=== PATIENT | female | born 1965 | race Caucasian/White ===

== ENCOUNTER 2021-10-26 14:30 | Outpatient (RCR) | payer OTHER, SELFPAY ==
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
== END 2021-10-29 11:00 | disposition home or self-care (01) ==
LOC: ANHPT 14:30
DX: S02.609D Fracture of mandible, unspecified, subsequent encounter for fracture with routine healing (principal); S62.601D Fracture of unspecified phalanx of left index finger, subsequent encounter for fracture with routine healing; S22.41XD Multiple fractures of ribs, right side, subsequent encounter for fracture with routine healing
CPT/HCPCS: 92523; 97110; 97112; 97161; 97166; 97530

== ENCOUNTER → 2021-12-13 14:39 | Outpatient (CLI) | payer OTHER, SELFPAY ==
--- NOTE | ~2021-12-13 | MR_ITS ---
EXAMINATION: MR brain/brain stem wo/w con DATE: 12/13/2021 16:02 INDICATION: Multiple sclerosis TECHNIQUE: Magnetic resonance imaging (MRI) of the brain and brainstem was performed without and with 13 mL Multihance intravenous contrast. Sequences included sagittal and axial T1-weighted FLAIR, axia l T1-weighted FSE, axial diffusion-weighted FS EPI, sagittal T2-weighted FLAIR, axial T2*-weighted GR E, axial T2-weighted FLAIR Propeller, and axial T2-weighted Propeller. Postcontrast sequences include d axial, coronal, and sagittal T1-weighted FSE. Apparent diffusion coefficient (ADC) maps were create d. COMPARISON: None. FINDINGS: There are no areas of restricted diffusion to suggest acute infarction. There is a region of encephal omalacia with surrounding T2 hyperintense likely gliosis and decreased signal in susceptibility weigh odin imaging consistent with presence of blood products at the right cerebellar hemisphere. There is o verlying right occipital craniotomy which suggests this is related to prior surgery. There are approx imately 8 total lesions of increased T2-weighted signal intensity in the brain. Of these lesions, sukumar roximately 3 are periventricular, 4 are juxtacortical, and none are infratentorial. None of the lesio ns enhance. In addition there is increased T2 signal along the corpus callosum most prominent at the splenium. No abnormal intracranial mass lesion. The ventricles are symmetric and normal in size. Ther e are no abnormal extra-axial fluid collections. Flow voids are seen in the cerebral arteries on the T2-weighted sequences consistent with their expected patency. Visualized orbits and soft tissues are unremarkable. There are no areas of abnormal enhancement on the post contrast images. IMPRESSION: 1. A few periventricular and subcortical T2 hyperintense white matter lesions along with increased T2 signal along the corpus callosum which would be consistent with provided history of multiple scleros is. No enhancing lesions identified to suggest acute disease. 2. Encephalomalacia at the right cerebral hemisphere underlying a prior right occipital craniotomy. C orrelate with surgical history. Reviewed, dictated and finalized at location A. IMPRESSION: 1. A few periventricular and subcortical T2 hyperintense white matter lesions a long with increased T2 signal along the corpus callosum which would be consiste nt with provided history of multiple sclerosis. No enhancing lesions identified to suggest acute disease. 2. Encephalomalacia at the right cerebral hemisphere underlying a prior right o ccipital craniotomy. Correlate with surgical history.
[2021-12-13 15:25] LABS: Estimated Glomerular Filt Rate > 60
== END ==
PROVIDERS: Visit Provider Psychiatry & Neurology Neurology
DX: G35 Multiple sclerosis (principal); G93.89 Other specified disorders of brain
CPT/HCPCS: 70553; A9577

== ENCOUNTER 2022-05-18 16:15 | Emergency (ER) | payer OTHER, SELFPAY ==
--- NOTE | 2022-05-18 17:21 | ED.FEMALEGU ---
HPI - Female Genitourinary General Chief complaint: Urogenital-Female Stated complaint: uti Time Seen by Provider: 05/18/22 18:15 Source: patient and RN notes reviewed Mode of arrival: ambulatory Limitations: no limitations History of Present Illness HPI Narrative: 57-year-old female presents concern for painful urination, urine frequency for 2 weeks. She reports history of urinary tract infections. She denies any abdominal pain, nausea, vomiting, chills, sweats, fever, back pain. MD elicited complaint: UTI Related Data Home Medications Medication Instructions Recorded Confirmed aspirin 81 mg chewable tablet 81 mg PO DAILY 05/18/22 05/18/22 cholecalciferol (vitamin D3) 25 25 mcg PO DAILY 05/18/22 05/18/22 mcg (1,000 unit) tablet duloxetine 30 mg capsule,delayed 30 mg PO DAILY 05/18/22 05/18/22 release duloxetine 60 mg capsule,delayed 60 mg PO DAILY 05/18/22 05/18/22 release melatonin 3 mg tablet 3 mg PO HS 05/18/22 05/18/22 nortriptyline 25 mg capsule 25 mg PO DAILY 05/18/22 05/18/22 teriflunomide 14 mg tablet 14 mg PO DIRECTED 05/18/22 05/18/22 (Aubagio) Allergies Allergy/AdvReac Type Severity Reaction Status Date / Time cephalexin [From Keflex] Allergy Other Verified 05/18/22 17:37 trazodone Allergy Other Verified 05/18/22 17:37 Review of Systems Review of Systems: CONSTITUTIONAL: Denies malaise, chills, sweats, or fever. CARDIOVASCULAR: Denies chest pain, palpitations, or edema. RESPIRATORY: Denies cough or dyspnea. GASTROINTESTINAL: Denies abdominal pain, nausea, vomiting, diarrhea GENITOURINARY: Reports dysuria, frequency, urgency. Denies suprapubic pressure. Denies flank pain or hematuria. SKIN: Denies rash or itching. MUSCULOSKELETAL: Denies back pain or myalgia. All systems reviewed & are unremarkable except as noted in HPI and below PMFSH Comments At time of signature, agree with nursing past medical, surgical, social and family history. There is no relevant family history pertinent to the presenting complaint Exam Narrative: GENERAL: Well-appearing, well-nourished, and in no acute distress. HEAD: Normocephalic. EYES: PERRLA, conjunctivae clear. NECK: Supple. No lymphadenopathy CHEST: Clear to auscultation. No respiratory distress. HEART: Regular rate and rhythm. ABDOMEN: Soft, nontender upon palpation, nondistended, normal active bowel sounds, no palpable or pulsatile masses, no guarding. No CVA tenderness SKIN: Warm, dry, no rash. NEURO: Alert and oriented x3. PSYCH: Normal mood and affect Course Course Emergency Course: Patient is aware of diagnosis, understands and agrees to treatment plan. Anticipatory guidance given. Patient agrees to follow-up as directed and is aware of reasons to seek care at the emergency department. Portions of this record may have been created with voice recognition software Level of Care: Express Care Visit Vital Signs Vital signs: Reviewed. MDM - Female Genitourinary MDM Narrative Medical decision making narrative: Exam findings and UA show no acute concerns or changes; patient is non-toxic appearing and is in no distress. Patient is appropriate for outpatient treatment and follow-up. Differential Diagnosis Differential diagnosis: Likely urinary tract infection and cystitis Critical Care Time Critical Care Time Critical Care Time: No Discharge Plan Discharge Clinical Impression: Urinary tract infection Patient Disposition: Home, Self-Care Condition: Stable Instructions: Antibiotic Form, Urinary Tract Infection in Women (ED) Additional Instructions: We will send a urine culture to the lab; if the culture identifies an organism that the prescribed antibiotic will not treat, you will receive a phone call from an urgent care staff member and an appropriate antibiotic will be prescribed. -Your symptoms should begin to improve within a day of starting antibiotics. But you should finish all the antibiotic pills you get. Otherwi
[2022-05-18 17:40] VITALS: BP 134/74; PULSE 87; RESP 16; TEMP 36.6; O2SAT 100
== END 2022-05-18 18:26 | disposition home or self-care (01) ==
PROVIDERS: Emergency Provider Nurse Practitioner
DX: N39.0 Urinary tract infection, site not specified (principal); G35 Multiple sclerosis; Z86.73 Personal history of transient ischemic attack (TIA), and cerebral infarction without residual deficits; Z79.82 Long term (current) use of aspirin
CPT/HCPCS: 81003; 87077; 87086; 87088; 99213; G0463

== ENCOUNTER 2023-04-04 08:15 | Outpatient (RCR) | payer BC, SELFPAY ==
--- NOTE | 2023-01-30 11:24 | PTOPEVAL1 ---
Assessment and note entered by Angela Travis, PT Evaluation Information Assessment Status Evaluation Diagnosis sciatic nerve pain RLE Onset 2 months ago Subjective Information Patient referred to PT due to worsening sciatic nerve pain which has become constant. Pain initially was radiating into bilateral lower extremities. On this date patient is reporting lower back R hip, and in pelvic floor/saddle region. Patient currently reporting numbness in bilaterl big toes, R lateral calf tingling. Patient does have history of MS and at baseline is independent with gait without AD, patient is currently using 4ww for mobility. Pain in currently limiting ability to perform chores at home. Patient goal is to decrease pain in back and return to normal mobility Reported Pain Level Pain Score 3: Self Report Assessment PT Clinical Summary Patient presents due to back pain with radiating symptoms into R hip and saddle region, pain limits ability to ambulate and perform chores at home. patient presents with decreased RLE strength, severe pain, tenderness to palpation in back musculature, and decreased gait speed/step quality with use of 4ww. Recommending skilled PT 2x/wk for 4 weeks to improve safety/independence with mobility and decrease pain. Limited tolerance with exercises on this date due to severity of pain nand difficulty achieving supine position. Patient educated to go to ER if incontinence occurs/ numbness or weakness progresses. Plan of Care Interventions Aquatic Therapy,Electrical Stimulation,Gait Training,Hot Pack/Cold Pack,Manual Therapy,Neuro Re-education,Patient/Caregiver Education,Therapeutic Activities,Therapeutic Exercise Other Interventions cupping, taping, iastm PT Services Indicated Yes Treatment Frequency and 2x/wk for 4 weeks Duration These treatments will address the objective and functional deficits as defined above. The patient will be advanced safely and appropriately in order for the patient to progress towards his/her prior level of function. Additional exercises will be introduced and as well as a comprehensive home exercise program upon discharge, if needed, ?to ensure carryover of functional gains achieved in the clinic. This treatment plan has been reviewed and agreement upon by the patient.
--- NOTE | 2023-01-30 11:25 | OPREHPOC ---
Outpatient Therapy Plan of Care This is a Multidisciplinary Plan of Care that may contain components documented by all disciplines (PT, OT, and ST.) PT Problem 1 PT Problem #1 Knowledge Deficit PT Goal 1 Goal 1. Patient will demonstrate independence with home exercise program PT Problem 2 PT Problem #2 Pain PT Goal 1 Goal 1. Patient will report back pain as 1/10 2. Patient will report no radicular symptoms into R hip or saddle region. PT Problem 3 PT Problem #3 Impaired Strength PT Goal 1 Goal 1. Patient will improve RLE hip and ankle strength grossly to 4/5 PT Problem 4 PT Problem #4 Impaired Gait PT Goal 1 Goal 1. Patient will perform 2 minute walk test with distance of 350 ft with least restrictive device. 2. Patient will report return to ambulation at home without use of 4ww. PT Problem 5 PT Problem #5 Impaired Functional Mobil PT Goal 1 Goal 1. Patient will report ability to perform laundry at home with pain 1/10 or less in back
--- NOTE | 2023-02-27 08:55 | PCPTNOTE ---
Mrs. Ocampo cancelled her appointment on this date due to having no transportation. Anjel Oro, MPT
--- NOTE | 2023-03-12 09:01 | PTOPEVAL1 ---
Assessment and note entered by Anjel Oro Evaluation Information Assessment Status Progress Diagnosis sciatic nerve pain RLE Onset 2 months ago Subjective Information Pt. reports that she has improved in regards to pain intensity and frequency. She reports that she is using her cane for most ambulation. She states that she notices she can stand longer without developing pain. She states that she used to have to sit on her walker the entire time she cooked and no longer has to use it. She reports that she still notes pain in the legs, described in the hamstring area. She states that she is able to stand for a duration of 10 minutes currently. She reports that she would like to continue with skilled PT as she has noticed improvement and would like to be able to stand longer and further decrease pain. Reported Pain Level Pain Score 1: Self Report Assessment PT Clinical Summary Mrs. Ocampo has attended a total of 9 treatment sessions. In this time she has demonstrated improvements in functional mobility, strength and pain. She continues to present with deficits in standing endurance, gait and strength despite her progress. At this time we will continue skilled PT in order to transition to more intense stabilization activities and continue to improve endurance with ambulation. Continue focus on remaining goals and discussed a walking regimen for home with the pt. Plan of Care Interventions Electrical Stimulation,Gait Training,Hot Pack/Cold Pack,Manual Therapy,Neuro Re-education, Therapeutic Activities,Therapeutic Exercise Other Interventions cupping, taping, iastm PT Services Indicated Yes Treatment Frequency and 1x/week x 4 visits Duration These treatments will address the objective and functional deficits as defined above. The patient will be advanced safely and appropriately in order for the patient to progress towards his/her prior level of function. Additional exercises will be introduced and as well as a comprehensive home exercise program upon discharge, if needed, ?to ensure carryover of functional gains achieved in the clinic. This treatment plan has been reviewed and agreement upon by the patient.
--- NOTE | 2023-04-09 11:56 | PCPTNOTE ---
pt called and canceled today's reeval appt;
--- NOTE | 2023-06-05 09:53 | PCPTNOTE ---
Mrs. Ocampo attended a total of 12 treatment sessions from 01/30/23 to 04/04/23. She has failed to return to the clinic and has not contacted the clinic. She will be discharged from our care at this time. Thank you for the referral of this patient. Anjel Oro, MPT
== END 2023-04-30 23:59 | disposition home or self-care (01) ==
LOC: ANHPT 08:15
PROVIDERS: Visit Provider Orthopaedic Surgery
DX: M25.551 Pain in right hip (principal)
CPT/HCPCS: 97110; 97112; 97140; 97163; 97530

== ENCOUNTER 2024-06-04 10:19 | Outpatient (CLI) | payer BC, SELFPAY ==
--- NOTE | ~2024-06-04 | MR_ITS ---
EXAMINATION: MR lumbar spine wo con DATE: 06/04/2024 10:48 INDICATION: Low back pain. TECHNIQUE: Magnetic resonance imaging (MRI) of the lumbar spine was performed without intravenous con trast. Sequences included sagittal T2-weighted FSE, sagittal T2-weighted FS FSE, sagittal T1-weighted FSE, and axial T2-weighted FSE. COMPARISON: None FINDINGS: There is 9 degrees dextrocurvature of lumbar spine. Vertebral body heights are normal. Ther e is moderately decreased disc height at T11-T12, L1-L2, L2-L3, and L3-L4 and mildly decreased disc h eight at L4-L5. The distal spinal cord signal intensity is normal. The conus medullaris is at L1. The following disc levels are specifically discussed: L1-L2: The disc is bulging and has an annular fissure. There is mild bilateral facet joint osteoarthr itis. There is mild bilateral neural foraminal stenosis. There is mild central canal stenosis. L2-L3: The disc is bulging. There is mild bilateral facet joint osteoarthritis. There is mild bilater al neural foraminal stenosis. There is mild central canal stenosis. L3-L4: The disc is bulging and has an annular fissure. There is severe bilateral facet joint osteoart hritis. There is moderate bilateral neural foraminal stenosis. There is mild central canal stenosis. L4-L5: The disc is bulging and has an annular fissure. There is severe bilateral facet joint osteoart hritis. There is moderate bilateral neural foraminal stenosis. There is moderate central canal stenos is. L5-S1: The disc is bulging. There is severe bilateral facet joint osteoarthritis. There is mild left neural foraminal stenosis. There is no central canal stenosis. IMPRESSION: 1. Moderate lumbar spondylosis. Reviewed, dictated and finalized at location A. [employer]
== END 2024-06-04 10:20 | disposition home or self-care (01) ==
LOC: MICIMG 10:19
PROVIDERS: PCP Psychiatry & Neurology Neurology; Visit Provider Physician Assistant Surgical
DX: M47.896 Other spondylosis, lumbar region (principal)
CPT/HCPCS: 72148